=== PATIENT | female | born 1965 | race Caucasian/White ===

== ENCOUNTER → 2017-07-19 18:45 | Outpatient (CLI) | payer OTHER, SELFPAY ==
[2017-07-22 12:00] LABS: HPV APTIMA, High Risk Negative (Negative)
== END ==
PROVIDERS: Family Provider Family Medicine; PCP Family Medicine; Visit Provider Nurse Practitioner Women's Health
DX: Z12.4 Encounter for screening for malignant neoplasm of cervix (principal)
CPT/HCPCS: 88175; G0145

== ENCOUNTER → 2017-08-06 06:57 | Outpatient (CLI) | payer OTHER, SELFPAY ==
--- NOTE | 2017-08-06 06:57 | DT_ITS ---
This patient was seen during an EMR downtime August 02, 2017 - August 09, 2017. This patient may have a combination of paper and electronic documentation or all paper documentation. All documentation is viewable within the e-chart portion of [facility] for each patient visit.
--- NOTE | 2017-08-06 07:04 | BI_ITS ---
MAMMOGRAPHY - BILATERAL SCREENING REASON FOR EXAM: Female, 52 years old. Routine annual screening examination. PERTINENT HISTORY: Mother with breast cancer. TECHNIQUE: Digital bilateral breast marybeth (3D mammographic acquisition) in the CC and MLO projections. 2-D mediolateral oblique (MLO) and craniocaudad (CC) views of both breasts were obtained. CAD: Full Field Digital Mammography with Computer Added Detection was performed. COMPARISON: Comparison is made with prior ocular examination dated July 14, 2016. FINDINGS: Breast Composition: There are scattered areas of fibroglandular density. There are no dominant masses or suspicious calcifications. Stable bilateral benign appearing axillary lymph nodes. No other significant abnormalities are identified. There has been no significant change since the prior study. BI/SCREENING MAMM (CAD), BILAT IMPRESSION: Stable bilateral screening mammogram. Yearly follow-up mammogram recommended. (A) ASSESSMENT CATEGORY: BIRADS Category 2: Benign. A letter regarding these results will be sent to the patient by the facility within 30 days. Approximately 10% of breast cancers are not detected by mammography. A normal mammogram should not delay biopsy of a clinically suspicious abnormality. [id number] Electronically Signed: Boubacar Barnard MD at 8:26 EDT Tel [phone], Service support ,
== END ==
PROVIDERS: Family Provider Family Medicine; PCP Family Medicine; Visit Provider Nurse Practitioner Women's Health
DX: Z12.31 Encounter for screening mammogram for malignant neoplasm of breast (principal)
CPT/HCPCS: 77063; 77067

== ENCOUNTER → 2018-09-29 | Outpatient (CLI) | payer OTHER, SELFPAY ==
--- NOTE | 2018-09-29 07:43 | BI_ITS ---
MAMMOGRAPHY - BILATERAL SCREENING REASON FOR EXAM: Female, 53 years old. Routine annual screening examination. PERTINENT HISTORY: Mother with breast cancer. Remote right breast biopsy. TECHNIQUE: Digital bilateral breast tod (3D mammographic acquisition) in the CC and MLO projections. 2-D mediolateral oblique (MLO) and craniocaudad (CC) views of both breasts were obtained. CAD: Full Field Digital Mammography with Computer Added Detection was performed. COMPARISON: Comparison is made with prior study dated August 06, 2017. FINDINGS: Breast Composition: There are scattered areas of fibroglandular density. There are no dominant masses or suspicious calcifications. No other significant abnormalities are identified. There has been no significant change since the prior study. BI/SCREEN MAMM (CAD) W/TOD BILAT IMPRESSION: Stable bilateral screening mammogram. Yearly follow-up mammogram recommended. (A) ASSESSMENT CATEGORY: BIRADS Category 1: Negative. A letter regarding these results will be sent to the patient by the facility within 30 days. Approximately 10% of breast cancers are not detected by mammography. A normal mammogram should not delay biopsy of a clinically suspicious abnormality. [id number] Electronically Signed: Boubacar Barnard, at 9:39 EDT , Service support ,
== END | disposition home or self-care (01) ==
LOC: OPBI 07:41
PROVIDERS: Family Provider Family Medicine; PCP Family Medicine; Referring Provider Nurse Practitioner Women's Health; Visit Provider Nurse Practitioner Women's Health
DX: Z12.31 Encounter for screening mammogram for malignant neoplasm of breast (principal)
CPT/HCPCS: 77063; 77067

== ENCOUNTER → 2019-10-13 07:36 | Outpatient (CLI) | payer OTHER, SELFPAY ==
[2018-09-29 08:29] VITALS: BMI 35.7
--- NOTE | 2019-10-13 07:39 | BI_ITS ---
MAMMOGRAPHY - BILATERAL SCREENING REASON FOR EXAM: Female, 54 years old. Routine annual screening examination. PERTINENT HISTORY: Mother with breast cancer. History of prior right breast biopsies. TECHNIQUE: Digital bilateral breast tod (3D mammographic acquisition) in the CC and MLO projections. 2-D mediolateral oblique (MLO) and craniocaudad (CC) views of both breasts were obtained. CAD: Full Field Digital Mammography with Computer Added Detection was performed. COMPARISON: Comparison is made with prior study dated 09/29/2018 and 08/06/2017. FINDINGS: Breast Composition: There are scattered areas of fibroglandular density. There are no dominant masses or suspicious calcifications. Stable small benign-appearing bilateral axillary lymph node. No other significant abnormalities are identified. There has been no significant change since the prior study. BI/SCREEN MAMM (CAD) W/TOD BILAT IMPRESSION: Stable bilateral screening mammogram. Yearly follow-up mammogram recommended. (A) ASSESSMENT CATEGORY: BIRADS Category 2: Benign. A letter regarding these results will be sent to the patient by the facility within 30 days. Approximately 10% of breast cancers are not detected by mammography. A normal mammogram should not delay biopsy of a clinically suspicious abnormality. [id number] Electronically Signed: Boubacar Barnard, at 9:00 EDT , Service support ,
== END ==
PROVIDERS: PCP Family Medicine; Referring Provider Nurse Practitioner Women's Health; Visit Provider Nurse Practitioner Women's Health
DX: Z12.31 Encounter for screening mammogram for malignant neoplasm of breast (principal)
CPT/HCPCS: 77063; 77067

== ENCOUNTER → 2020-10-14 07:30 | Outpatient (CLI) | payer OTHER, SELFPAY ==
[2019-10-13 08:10] VITALS: BMI 35.5
--- NOTE | 2020-10-14 07:34 | BI_ITS ---
MAMMOGRAPHY - BILATERAL SCREENING REASON FOR EXAM: Female, 55 years old. Routine annual screening examination. PERTINENT HISTORY: Mother with breast cancer. Remote right breast biopsy. TECHNIQUE: Digital bilateral breast tod (3D mammographic acquisition) in the CC and MLO projections. 2-D mediolateral oblique (MLO) and craniocaudad (CC) views of both breasts were obtained. CAD: Full Field Digital Mammography with Computer Added Detection was performed. COMPARISON: Comparison is made with prior study 10/13/2019 and 09/29/2018. FINDINGS: Breast Composition: There are scattered areas of fibroglandular density. There are no dominant masses or suspicious calcifications. Stable benign appearing bilateral axillary lymph nodes. No other significant abnormalities are identified. There has been no significant change since the prior study. BI/SCRN MAMM (CAD)W/TOD BILAT IMPRESSION: Stable bilateral screening mammogram. Yearly follow-up mammogram recommended. (A) ASSESSMENT CATEGORY: BIRADS Category 2: Benign. A letter regarding these results will be sent to the patient by the facility within 30 days. Approximately 10% of breast cancers are not detected by mammography. A normal mammogram should not delay biopsy of a clinically suspicious abnormality. [id number] Electronically Signed: Boubacar Barnard MD at 8:55 EDT , Service support ,
== END ==
PROVIDERS: PCP Family Medicine; Referring Provider Nurse Practitioner Women's Health; Visit Provider Nurse Practitioner Women's Health
DX: Z12.31 Encounter for screening mammogram for malignant neoplasm of breast (principal)
CPT/HCPCS: 77063; 77067

== ENCOUNTER 2021-05-17 08:00 | Outpatient (CLI) | payer OTHER, SELFPAY ==
[2019-10-13 08:10] VITALS: BMI 35.5
[2021-05-17 10:11] LABS: Cholesterol 222 mg/dL (200); High Density Lipoprotein 39 mg/dL; Triglycerides 188 mg/dL; Very Low Density Lipoprotein 38 mg/dL (5-40)
== END 2021-05-17 23:59 | disposition home or self-care (01) ==
PROVIDERS: PCP Family Medicine; Visit Provider Family Medicine
DX: E78.5 Hyperlipidemia, unspecified (principal)
CPT/HCPCS: 36415; 80061

== ENCOUNTER → 2021-10-15 | Outpatient (CLI) | payer OTHER, SELFPAY ==
--- NOTE | 2021-10-15 07:38 | BI_ITS ---
MAMMOGRAPHY - BILATERAL SCREENING 3-D TOMOSYNTHESIS REASON FOR EXAM: Female, 56 years old. breast cancer screening PERTINENT HISTORY: No significant family history. TECHNIQUE: 2-D mammograms and 3-D Tomosynthesis of the breast (s) were performed. CAD was performed. COMPARISON: 10/14/2020 FINDINGS: The breast composition is composed of scattered fibroglandular density. Scattered benign calcifications are seen. No dense spiculated masses or suspicious microcalcifications are identified. No architectural distortion is identified. There is no skin thickening or retraction. There has been no significant change since the prior study. BI/SCRN MAMM (CAD)W/TOD BILAT IMPRESSION: No mammographic signs of malignancy. Routine yearly mammograms recommended. ASSESSMENT CATEGORY: BIRADS Category 1: Negative. A letter regarding these results will be sent to the patient by the facility within 30 days. FOLLOW UP RECOMMENDATION: Yearly follow up mammogram recommended. (A) Approximately 10% of breast cancers are not detected by mammography. A normal mammogram should not delay biopsy of a clinically suspicious abnormality. Electronically Signed: Chris De La Rosa MD at 9:24 EDT ,
== END | disposition home or self-care (01) ==
LOC: OPBI 07:37
PROVIDERS: PCP Family Medicine; Visit Provider Nurse Practitioner Women's Health
DX: Z12.31 Encounter for screening mammogram for malignant neoplasm of breast (principal)
CPT/HCPCS: 77063; 77067

== ENCOUNTER → 2022-05-20 | Outpatient (CLI) | payer OTHER, SELFPAY ==
[2022-05-20 08:00] LABS: Basophil# 0.07 X10^3/uL; Eosinophils% 7.1 % (0-5); Hematocrit 43.2 % (37-47); Hemoglobin 14.3 g/dL (12.0-15.0); Lymphocyte % 28.3 % (19-41); Mean Corp Hgb Conc 33.1 g/dL (32-36); Mean Corpuscular Hgb 29.8 pg (27.0-32.0); Mean Platelet Vol. 10.2 fl (6.2-12.0); Monocyte# 0.49 X10^3/uL; Monocyte% 6.9 % (0-10); NRBC Flagged by Analyzer 0 % (0-5); Neutrophil # 3.99 X10^3/uL (2.7-7.7); Neutrophil % 56.6 % (47-70); Platelet Count 325 K/mm3 (150-450); RBC Distribution Width CV 12.8 % (11.6-14.6); RBC Distribution Width SD 42.2 fl (35.1-43.9); White Blood Count 7.1 K/mm3 (4.4-11.0)
[2022-05-20 08:26] LABS: AST(SGOT) 27 U/L (15-37); Alanine Aminotransfer ALT/SGPT 27 U/L (13-56); Albumin, Serum 3.8 g/dL (3.2-5.0); Alkaline Phosphatase 80 U/L (45-117); Anion Gap 3 (5-15); BUN 12 mg/dL (7-18); BUN/Creat Ratio 11.3 RATIO (10-20); Calcium,Total 9.5 mg/dL (8.5-10.1); Chloride 111 mmol/L (98-107); Cholesterol 189 mg/dL (200); Creatinine, Serum 1.06 mg/dL (0.55-1.02); EST Glomerular Filtration Rate 57 mL/min (>60); Est Glom Filt Rate - Afr Amer 69 mL/min (>60); Globulin 3.9 g/dL (2.2-4.2); Glucose 112 mg/dL (74-106); High Density Lipoprotein 39 mg/dL; Potassium 4.2 mmol/L (3.5-5.1); Protein, Total 7.7 g/dL (6.4-8.2); Sodium Level 142 mmol/L (136-145); Triglycerides 164 mg/dL; Very Low Density Lipoprotein 33 mg/dL (5-40)
== END | disposition home or self-care (01) ==
LOC: LAB 06:49
PROVIDERS: PCP Family Medicine; Referring Provider Family Medicine; Visit Provider Family Medicine
DX: Z00.00 Encounter for general adult medical examination without abnormal findings (principal)
CPT/HCPCS: 36415; 80053; 80061; 85025

== ENCOUNTER → 2022-10-20 | Outpatient (CLI) | payer OTHER, SELFPAY ==
--- NOTE | 2022-10-20 07:54 | BI_ITS ---
MAMMOGRAPHY - BILATERAL SCREENING REASON FOR EXAM: Female, 57 years old. Routine annual screening examination. PERTINENT HISTORY: Mother with breast cancer. Remote history of right breast biopsy. TECHNIQUE: Digital bilateral breast tod (3D mammographic acquisition) in the CC and MLO projections. 2-D mediolateral oblique (MLO) and craniocaudad (CC) views of both breasts were obtained. CAD: Full Field Digital Mammography with Computer Added Detection was performed. COMPARISON: Screening mammogram from 10/15/2021, 10/14/2020. FINDINGS: Breast Composition: There are scattered areas of fibroglandular density. There are no dominant masses or suspicious calcifications. No other significant abnormalities are identified. There has been no significant change since the prior study. BI/SCRN MAMM (CAD)W/TOD BILAT IMPRESSION: Stable bilateral screening mammogram. Yearly follow-up mammogram recommended. (A) ASSESSMENT CATEGORY: BIRADS Category 1: Negative. A letter regarding these results will be sent to the patient by the facility within 30 days. Approximately 10% of breast cancers are not detected by mammography. A normal mammogram should not delay biopsy of a clinically suspicious abnormality. Electronically Signed: Justino Lea DO at 11:18 EDT ,
[2022-10-23 14:10] LABS: HPV APTIMA, High Risk Negative (Negative)
== END | disposition home or self-care (01) ==
PROVIDERS: PCP Family Medicine; Referring Provider Nurse Practitioner Women's Health; Visit Provider Nurse Practitioner Women's Health
DX: Z12.31 Encounter for screening mammogram for malignant neoplasm of breast (principal)
CPT/HCPCS: 77063; 77067; 87624; 88175; G0145

== ENCOUNTER → 2023-03-25 | Outpatient (CLI) | payer OTHER, SELFPAY ==
--- OUTSIDE RECORDS SUMMARY | 2023-03-25 16:05 | XMS RPT_ITS | CCD ---
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, Jyothi Hernandez Unavailable Medications Completed/Discontinued Medications Medication Drug Class(es) Dates Sig (Normalized) Sig (Original) meloxicam 15 mg oral tablet (5 sources) Nonsteroidal Anti-inflammatory Drug Start: 05-20-2015 End: 12-01-2016 take 1 tablet by mouth once daily MELOXICAM 15 MG TABS 1 po daily MELOXICAM [id number] Jyothi Gutierrez 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 nystatin 100 unt/mg / triamcinolone acetonide 0.001 mg/mg topical ointment (2 sources) Polyene Antifungal, Corticosteroid Start: 12-01-2016 End: 12-08-2016 NYSTATIN-TRIAMCIN OLONE 547150-8.1 UNIT/GM-% OINT apply twice daily NYSTATIN-TRIAMCIN OLONE [id number] Jyothi 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 [employer]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 Problems Active Problems Problem Classification Problem Date Documented Date Episodic/Chronic Unclassified (1 source) Removal of intrauterine contraceptive device done; Translations: [Encounter for removal of intrauterine contraceptive device] Onset: 12-01-2016 12-01-2016 Past or Other Problems Problem Classification Problem Date Documented Date Episodic/Chronic Contraceptive and procreative management (1 source) Encounter for removal of intrauterine contraceptive device; Translations: [Encounter for removal of intrauterine contraceptive device] Onset: 12-01-2016 12-01-2016 Episodic Mycoses (2 sources) Candidiasis of skin and nails; Translations: [Candidiasis of skin and nail] Onset: 12-01-2016 12-01-2016 Episodic Other connective tissue disease (3 sources) Pain in thumb ; Translations: [Pain in left finger(s)] Onset: 05-09-2015 05-09-2015 Episodic Results Test Name Value Interpretation Reference Range Facil ity Vital Signs Date Time Vital Sign Value Performing Clinician Facility 12-01-2016 08:04-0400 BMI (Body Mass Index) 36.28 kg/m2 Jyothi Gutierrez NP [facility] 12-01-2016 08:04-0400 Body Temperature 97.7 [degF] Jyothi Gutierrez NP [facility] [place] 12-01-2016 08:04-0400 BP Diastolic 84 mm[Hg] Jyothi Gutiererz NP [facility] [place] [facility] 12-01-2016 08:04-0400 BP Systolic 145 mm[Hg] Jyothi Gutierrez NP [facility] [place] 12-01-2016 08:04-0400 Height 167.64 cm Jyothi Gutierrez NP [facility] 12-01-2016 08:04-0400 Pulse (Heart Rate) 77 /min Jyothi Gutierrez NP [facility] 12-01-2016 08:04-0400 Respiratory Rate 16 /min Jyothi Gutierrez NP [facility] [place] [facility] 12-01-2016 08:04-0400 Weight 101.97 kg Jyothi Gutierrez NP [facility] 05-09-2015 16:48-0500 BMI (Body Mass Index) 35.3 kg/m2 Alejandra Howard [facility] [place] 05-09-2015 16:48-0500 Body Temperature 98.5 [degF] Alejandra [facility] 05-09-2015 16:48-0500 BP Diastolic 86 mm[Hg] Alejandra [facility] 05-09-2015 16:48-0500 BP Systolic 124 mm[Hg] Alejandra Hernandez [facility] 05-09-2015 16:48-0500 BSA (Body Surface Area) 2.05 m2 Alejandra Hernandez [facility] 05-09-2015 16:48-0500 Height 166.37 cm Alejandra Hernandez [facility] 05-09-2015 16:48-0500 Pulse (Heart Rate) 70 /min Ale[facility] 05-09-2015 16:48-0500 Respiratory Rate 16 /min Alejandra Hernandez [facility] 05-09-2015 16:48-0500 Weight 97.71 kg [facility] Procedures Date Procedure Procedure Detail Performing Clinician Start: 12-01-2016 End: 12-01-2016 Removal intrauterine device iud Jyothi Gutierrez 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 Work Phone: Plan of Treatment Date Care Activity Detail Author Start: 12-01-2016 End: 12-01-2016 Appointment Appointment [facility] Start: 05-09-2015 End: 05-09-2015 Radex hand minimum 3 views X-Ray, Hand [facility] Start: 05-09-2015 End: 05-09-2015 X-ray exam of hand X-Ray, Hand [facility] Additional Source Comments FOR RECORDS PERTAINING TO PATIENTS WHO ARE OR HAVE BEEN ENROLLED IN A CHEMICAL DEPENDENCY/SUBSTANCEABUSE PROGRAM, SOME INFORMATION MAY BE OMITTED. This clinical summary was aggregated from multiple sources. Caution should be exercised in using it in the provision of clinical care. This summary normalizes information from multiple sources, and as a consequence, information in this document may materially change the coding, format and clinical context of patient data. In addition, data may be omitted in some cases. CLINICAL DECISIONS SHOULD BE BASED ON THE PRIMARY CLINICAL RECORDS. [facility]. provides no warranty or guarantee of the accuracy or completeness of information in this document.
[2023-03-25 17:48] LABS: Absolute Lymphocyte Count 2.79 X10^3/uL (0.83-4.51); Absolute Neutrophil Count 3.5 X10^3/uL (2.0-7.7); Basophil# 0.09 X10^3/uL; Basophil% 1.2 % (0-1); Eosinophil# 0.21 X10^3/uL; Eosinophils% 2.9 % (0-5); Hematocrit 42.1 % (37-47); Hemoglobin 13.8 g/dL (12.0-15.0); Lymphocyte # 2.79 X10^3/ul (0.83-4.51); Lymphocyte % 38.2 % (19-41); Mean Corp Hgb Conc 32.8 g/dL (32-36); Mean Corpuscular Hgb 29.3 pg (27.0-32.0); Mean Corpuscular Volume 89.4 fL (81-99); Mean Platelet Vol. 10.1 fl (6.2-12.0); Monocyte# 0.69 X10^3/uL; Monocyte% 9.5 % (0-10); NRBC Flagged by Analyzer 0 % (0-5); Neutrophil % 47.9 % (47-70); Platelet Count 399 K/mm3 (150-450); RBC Distribution Width CV 12.7 % (11.6-14.6); Red Blood Count 4.71 M/mm3 (4.2-5.4); White Blood Count 7.3 K/mm3 (4.4-11.0)
[2023-03-25 18:32] LABS: AST(SGOT) 22 U/L (15-37); Alanine Aminotransfer ALT/SGPT 30 U/L (13-56); Albumin, Serum 3.9 g/dL (3.2-5.0); Alkaline Phosphatase 80 U/L (45-117); Anion Gap 6 (5-15); BUN 16 mg/dL (7-18); BUN/Creat Ratio 18.1 RATIO (10-20); Calcium,Total 9.3 mg/dL (8.5-10.1); Chloride 107 mmol/L (98-107); Creatinine, Serum 0.88 mg/dL (0.55-1.02); EST Glomerular Filtration Rate 70 mL/min (>60); Est Glom Filt Rate - Afr Amer 85 mL/min (>60); Globulin 4.1 g/dL (2.2-4.2); Glucose 85 mg/dL (74-106); Sodium Level 138 mmol/L (136-145)
== END | disposition home or self-care (01) ==
LOC: BFHLAB 15:45
PROVIDERS: PCP Family Medicine; Visit Provider Family Medicine
DX: Z01.818 Encounter for other preprocedural examination (principal)
CPT/HCPCS: 36415; 80053; 85025

== ENCOUNTER 2023-04-12 09:35 | Day surgery (SDC) | payer OTHER, SELFPAY ==
[2023-04-12] VITALS (8 sets, daily range): BP systolic 100–150; BP diastolic 55–87; PULSE 53–69; RESP 14–18; TEMP 36.1–36.8; O2SAT 90–98; BMI 37.3
[2023-04-12] MEDS: 0.9% Normal Saline (1000mL) 1,000 ML 125 ML IV (09:55)
[2023-04-12] MEDS: Cefazolin 2 GM in 0.9% Normal Saline (100mL Bag) 100 ML IV (10:38)
[2023-04-12] MEDS: Epinephrine (1 mg/ml) 1 MG/ML VIAL (11:14)
[2023-04-12] MEDS: Bupiv/Epi 0.5% Mpf 30 ML Vial INTRAARTIC (11:15)
--- NOTE | 2023-04-12 11:38 | PCM.OPRPT ---
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 Surgery/Procedure Performed:: Diagnostic and Operative arthroscopy with partial medial meniscectomy, partial lateral meniscectomy and tricompartmental chondroplasty left knee Description of Surgical Findings:: Report of Operation Date of Procedure: 04/12/2023 Preoperative Diagnosis: Left knee, internal derangement Postoperative Diagnosis: Left knee, multilayered MMT, inner 1/3 LMT, Grade 3 chondromalacia medial femoral condyle, 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 Description of Procedure: With appropriate informed consent, the patient was taken to the operative suite. After induction of general and regional anesthesia and administration of the preoperative antibiotics, the well leg was fitted with ZACARIAS and SCD's and well padded. The left knee was placed into the arthroscopy leg hartmann, prepped and draped sterilely. The standard arthroscopy portals were pre-injected with 0.5% Marcaine with epinephrine. A lateral portal was established. The diagnostic arthroscopy was begun. The patellofemoral joint revealed diff grade 3 chondromalacia of the patella and grade 3 and 4 chondromalacia of the trochlear groove. The medial compartment was entered and the medial portal was established. A probe was utilized to probe the medial meniscus. There was a complex midportion and posterior horn tear and grade 3 chondromalacia of the medial femoral condyle. ACL and PCL were probed and intact. The lateral compartment was entered. There was an inner 1/3 lateral meniscal tear and grade 3 and 4 chondromalacia of the lateral tibial plateau. Subsequently, a partial [medial and lateral ] meniscectomy was performed using a combination of straight and angled basket punches. The meniscotome was then utilized to remove the fragments of cartilage and then to smooth the remainder of the meniscus to a firm and stable rim. A shaver was used to perform a chondroplasty on the [PFJ, MFC and LTP ] to smooth the roughened surface cartilage and remove any delaminated cartilage. Thereafter, the arthroscopy instruments and fluid were removed. The portals were closed with interrupted sutures of 4-0 nylon followed by application of a sterile well-padded dressing and BEN wrap. The patient was extubated and transferred to the PACU in stable and satisfactory condition. Tanmay Castellano DO Surgeon: Tanmay Castellano manager patient: None Type of Anesthesia: General Anesthesiologist: Klever Dejesus Admboone VTE Documentation VTE Present on Admission: No VTE Mechan Device Prophylaxis: SCD's and Thigh High ZACARIAS Hose VTE Pharm Prophylaxis ordered?: No Reason prophylaxis not ordered:: Treatment Not Indicated
== END 2023-04-12 13:42 | disposition home or self-care (01) ==
LOC: SDC 09:35 → AC 09:37
PROVIDERS: PCP Family Medicine; Referring Provider Orthopaedic Surgery; Visit Provider Orthopaedic Surgery
PROC: (CPT 29870; principal; 2023-04-12 10:55)
DX: M23.92 Unspecified internal derangement of left knee (principal); M94.262 Chondromalacia, left knee; E66.9 Obesity, unspecified; Z68.37 Body mass index [BMI] 37.0-37.9, adult
CPT/HCPCS: 29880; 01400; J7030; J2405

== ENCOUNTER → 2023-10-26 | Outpatient (CLI) | payer OTHER, SELFPAY ==
--- NOTE | 2023-10-26 07:25 | BI_ITS ---
MAMMOGRAPHY - BILATERAL SCREENING REASON FOR EXAM: Female, 58 years old. Routine annual screening examination. PERTINENT HISTORY: Mother with breast cancer. TECHNIQUE: Digital bilateral breast tod (3D mammographic acquisition) in the CC and MLO projections. 2-D mediolateral oblique (MLO) and craniocaudad (CC) views of both breasts were obtained. CAD: Full Field Digital Mammography with Computer Added Detection was performed. COMPARISON: Comparison is made with prior study October 20, 2022 and October 15, 2021. FINDINGS: Breast Composition: There are scattered areas of fibroglandular density. There are no dominant masses or suspicious calcifications. Stable bilateral fat containing axillary lymph nodes. No other significant abnormalities are identified. There has been no significant change since the prior study. BI/SCRN MAMM (CAD)W/TOD BILAT IMPRESSION: Stable bilateral screening mammogram. Yearly follow-up mammogram recommended. (A) ASSESSMENT CATEGORY: BIRADS Category 2: Benign. A letter regarding these results will be sent to the patient by the facility within 30 days. Approximately 10% of breast cancers are not detected by mammography. A normal mammogram should not delay biopsy of a clinically suspicious abnormality. [id number] Electronically Signed: Boubacar Barnard MD at 9:03 EDT ,
== END | disposition home or self-care (01) ==
PROVIDERS: PCP Family Medicine; Referring Provider Nurse Practitioner Women's Health; Visit Provider Nurse Practitioner Women's Health
DX: Z12.31 Encounter for screening mammogram for malignant neoplasm of breast (principal); Z13.21 Encounter for screening for nutritional disorder; Z80.3 Family history of malignant neoplasm of breast
CPT/HCPCS: 36415; 77063; 77067; 82306

== ENCOUNTER → 2024-10-26 | Outpatient (CLI) | payer OTHER, SELFPAY ==
--- NOTE | 2024-10-26 07:45 | BI_ITS ---
EXAM: SCRN MAMM (CAD)W/TOD BILAT DATE: 10/26/2024 CLINICAL HISTORY: F, Age 59 y/o , SCREENING FOR BREAST CANCER Mother with breast cancer. TECHNIQUE: SCRN MAMM (CAD)W/TOD BILAT COMPARISON: Prior exam(s) dated October 26, 2023.. FINDINGS: TISSUE DENSITY: There are scattered areas of fibroglandular density. Bilateral Breast Mammographic Findings: No significant masses, calcifications or other abnormalities are identified. No suspicious masses, areas of developing architectural distortion, or suspicious calcifications. There has been no significant interval change. BI/SCRN MAMM (CAD)W/TOD BILAT IMPRESSION: Stable bilateral screening mammogram. OVERALL FINAL ASSESSMENT BI-RADS 2: BENIGN RECOMMENDATION: Routine annual follow-up in 1 Year A letter with findings and recommendations will be mailed to the patient. Reading Location: [id number]
== END | disposition home or self-care (01) ==
LOC: OPBI 07:28
PROVIDERS: PCP Family Medicine; Referring Provider Nurse Practitioner Women's Health; Visit Provider Nurse Practitioner Women's Health
DX: Z12.31 Encounter for screening mammogram for malignant neoplasm of breast (principal)
CPT/HCPCS: 77063; 77067